=== PATIENT | female | born 1995 ===

== ENCOUNTER → 2023-04-09 09:30 | Outpatient (BNVA) | payer OTHER, SELFPAY | PROVIDERS: Visit Provider Nurse Practitioner Women's Health | DX: N92.6 Irregular menstruation, unspecified (principal); Z12.4 Encounter for screening for malignant neoplasm of cervix; R10.2 Pelvic and perineal pain | CPT/HCPCS: 83036; 84146; 84402; 84439; 84443; 84702; 88175 ==

== ENCOUNTER → 2023-05-04 08:10 | Outpatient (BNVA) | payer OTHER, SELFPAY | PROVIDERS: Visit Provider Nurse Practitioner Women's Health | DX: N92.6 Irregular menstruation, unspecified (principal) | CPT/HCPCS: 76830 ==

== ENCOUNTER 2023-05-21 15:08 | Outpatient (CLI) | payer OTHER, SELFPAY ==
--- NOTE | 2023-05-21 15:15 | MR_ITS ---
WS: [id number] MRI BRAIN WITH AND WITHOUT CONTRAST HISTORY: R79.89 - Other specified abnormal findings of blood chemi... COMPARISON: None available. TECHNIQUE: Multiplanar imaging performed through the brain with MultiHance 10 ml's IV. No acute infarcts are seen. Collazo-white matter differentiation is well preserved. No susceptibility artifacts or prior lacunar infarcts. Ventricles and extra-axial spaces are normal. Clivus and pituitary gland are normal. Size of the pituitary gland appears normal. This was not a ded icated pituitary mass evaluation. Small microadenoma would not be visible. Optic chiasm and infundibu lum are normal position. Visualized posterior fossa and brainstem are also normal. Postcontrast images are negative for masses or vascular malformations. Dural venous sinuses are normal. Paranasal sinuses: Well aerated with no significant disease. Mastoid air cells: Normal. Calvarium and scalp: Normal. IMPRESSION: 1. Normal MRI brain with contrast. 2. No prior infarct or hemorrhage. 3. Normal sized pituitary gland. Small microadenoma would be difficult to exclude as dedicated pituit yandel evaluation was not obtained.
[2023-05-21] MEDS: gadobenate dimeglumine 20 mL vial IV (15:42)
== END 2023-05-21 15:09 | disposition home or self-care (01) ==
LOC: RAD 15:08
PROVIDERS: Visit Provider Nurse Practitioner Women's Health
DX: R79.89 Other specified abnormal findings of blood chemistry (principal)
CPT/HCPCS: 70553; A9577

== ENCOUNTER 2023-10-15 06:38 | Outpatient (CLI) | payer OTHER, SELFPAY | END 2023-10-15 06:39 | disposition home or self-care (01) | LOC: LAB 06:40 | PROVIDERS: Visit Provider Nurse Practitioner Women's Health | DX: R79.89 Other specified abnormal findings of blood chemistry (principal) | CPT/HCPCS: 36415; 84146 ==